=== PATIENT | female | born 2000 | race Caucasian/White ===

== ENCOUNTER 2018-10-10 20:28 | Emergency (ER) | payer OTHER ==
[~2018-10-10] VITALS: Ht 170.2 cm; Wt 71.4 kg
[2018-10-10] MEDS ORDERED: METR-265 PO (20:56)
[2018-10-10] MEDS ORDERED: ACETAMINOPHEN 325 MG TAB PO ONE (22:00)
[2018-10-10] MEDS ORDERED: PENICILLIN V POTASSIUM 500 MG TAB PO ONE (22:00)
[2018-10-10] MEDS ORDERED: PENI500T PO (22:26)
[2018-10-10 22:28] VITALS: BP 115/56
== END 2018-10-10 22:33 | disposition home or self-care (01) ==
LOC: M ED 20:28
DX: J02.0 Streptococcal pharyngitis (principal); Z79.899 Other long term (current) drug therapy; Z88.6 Allergy status to analgesic agent; Z88.8 Allergy status to other drugs, medicaments and biological substances; Z91.030 Bee allergy status

== ENCOUNTER 2019-10-12 11:54 | Emergency (ER) | payer OTHER ==
[~2019-10-12] VITALS: Ht 170.2 cm; Wt 78.1 kg
[~2019-10-12 11:54] MED LIST: METR-265 PO; PENI500T PO
[2019-10-12 13:48] VITALS: BP 120/69
--- NOTE | 2019-10-12 14:26 | REP ---
PELVIC ULTRASOUND: Real-time sonographic evaluation of the pelvis is performed utilizing transabdominal and endovaginal technique. The bladder is empty. Uterus measures 7.1 x 3.5 x 5.2 cm. Endometrial thickness is 4 mm. IUD is seen in the endometrial canal. Right ovary is enlarged 3.6 x 3.2 x 4.0 cm. Left ovary measures 2.0 x 1.3 x 1.6 cm. There is a simple appearing cyst with septations in the right ovary 2.8 x 1.9 x 2.4 cm. No torsion is seen of either ovary with duplex Doppler evaluation. No free fluid is seen. IMPRESSION: IUD seen in the endometrial canal. Small cyst right ovary containing a few internal septations, maximum diameter 2.8 cm. No torsion or free fluid. Electronically Signed by Chapin Johnson MD 10/12/2019 04:23 P
[2019-10-12 14:52] LABS: CHLAMYDIA DNA AMPLIFICATION NEGATIVE (NEGATIVE); GC DNA AMPLIFICATION NEGATIVE (NEGATIVE)
== END 2019-10-12 13:49 | disposition home or self-care (01) ==
LOC: M ED 11:54
DX: N83.209 Unspecified ovarian cyst, unspecified side (principal); Z97.5 Presence of (intrauterine) contraceptive device; Z88.6 Allergy status to analgesic agent; Z91.030 Bee allergy status

== ENCOUNTER 2021-05-29 07:13 | Emergency (ER) | payer OTHER ==
[~2021-05-29] VITALS: Ht 170.2 cm; Wt 81.8 kg
[2021-05-29] MEDS ORDERED: diphenhydrAMINE 50MG/ML VIAL (J1200) IV STA (13:41)
[2021-05-29] MEDS ORDERED: NS 1,000 ML IV ONE (13:45)
[2021-05-29] MEDS ORDERED: ONDANSETRON 4MG/2ML VIAL IV ONE (13:45)
[2021-05-29] MEDS ORDERED: PERCOCET 5MG/325MG TAB PO ONE (13:45)
[2021-05-29 15:05] LABS: RSV AMPLIFICATION NEGATIVE (NEGATIVE)
[2021-05-29 16:03] VITALS: BP 109/63
== END 2021-05-29 16:06 | disposition home or self-care (01) ==
LOC: M ED 07:13
DX: E86.0 Dehydration (principal); J45.909 Unspecified asthma, uncomplicated; Z97.5 Presence of (intrauterine) contraceptive device; Z88.8 Allergy status to other drugs, medicaments and biological substances; Z91.030 Bee allergy status
CPT/HCPCS: 87631; 96361; 96374; 96375; 99284; J1200; J2405

== ENCOUNTER → 2021-09-13 | Outpatient (CLI) | payer OTHER | LOC: M LABSMTC 11:37 | PROVIDERS: ATTEND Family Medicine | DX: Z20.822 Contact with and (suspected) exposure to COVID-19 (principal) ==

== ENCOUNTER 2022-03-10 06:37 | Emergency (ER) | payer OTHER ==
[~2022-03-10] VITALS: Ht 170.2 cm; Wt 79.1 kg
[2022-03-10 07:56] LABS: BASO % 0.4 % (0.0-1.0); EOS # 0.1 10^3/uL (0.0-0.5); EOS % 2.3 % (0.0-3.0); HEMATOCRIT 35.3 % (36.0-47.0); HEMOGLOBIN 12.1 g/dl (12.0-15.5); LYMPH # 1.3 10^3/uL (1.5-5.0); LYMPH % 26.6 % (24.0-44.0); MEAN CORPUSCULAR HEMOGLOBIN 30.7 pg (27.0-33.0); MEAN CORPUSCULAR HGB CONC 34.3 g/dl (32.0-36.5); MEAN CORPUSCULAR VOLUME 89.6 fl (80.0-96.0); MONO # 0.5 10^3/uL (0.0-0.8); MONO % 9.9 % (2.0-8.0); NEUTROPHILS # 2.9 10^3/uL (1.5-8.5); NEUTROPHILS % 60.4 % (36.0-66.0); PLATELET COUNT, AUTOMATED 186 10^3/uL (150-450); RED BLOOD COUNT 3.94 10^6/uL (4.00-5.40); WHITE BLOOD COUNT 4.9 10^3/uL (4.0-10.0)
[2022-03-10 08:20] LABS: HCG, SERUM QUALITATIVE NEGATIVE (NEGATIVE)
[2022-03-10 08:29] LABS: ALBUMIN 3.8 GM/DL (3.2-5.2); ALT/SGPT 18 U/L (12-78); BILIRUBIN,DIRECT 0.1 MG/DL (0.0-0.2); BILIRUBIN,TOTAL 0.4 MG/DL (0.2-1.0); BLOOD UREA NITROGEN 14 MG/DL (7-18); CALCIUM LEVEL 8.9 MG/DL (8.5-10.1); CARBON DIOXIDE LEVEL 28 MEQ/L (21-32); CHLORIDE LEVEL 107 MEQ/L (98-107); CREATININE FOR GFR 0.77 MG/DL (0.55-1.30); GLOMERULAR FILTRATION RATE > 60.0 (>60); GLUCOSE, FASTING 89 MG/DL (70-100); LIPASE 72 U/L (73-393); SODIUM LEVEL 139 MEQ/L (136-145); TOTAL PROTEIN 7.1 GM/DL (6.4-8.2)
[2022-03-10] MEDS ORDERED: ISOVUE-370 76% 100ML VIAL As Ordered ONE (09:08)
[2022-03-10 09:52] LABS: ERYTHROCYTE SEDIMENTATION RATE 10 mm/hr (0-20)
[2022-03-10] MEDS ORDERED: AZITHROMYCIN 250MG TABLET PO ONE (10:55)
[2022-03-10] MEDS ORDERED: AZIT500T5 PO (10:56)
[2022-03-10 11:18] VITALS: BP 113/74
== END 2022-03-10 11:24 | disposition home or self-care (01) ==
LOC: M ED 06:37
DX: R19.7 Diarrhea, unspecified (principal); B96.81 Helicobacter pylori [H. pylori] as the cause of diseases classified elsewhere; Z88.8 Allergy status to other drugs, medicaments and biological substances; Z91.030 Bee allergy status; Z97.5 Presence of (intrauterine) contraceptive device
CPT/HCPCS: 36415; 74177; 80048; 80076; 83690; 84703; 85025; 85652; 86140; 87507; 99284; Q9967